=== PATIENT | male | born 1990 | race Caucasian/White ===

== ENCOUNTER 2018-03-30 13:28 | Inpatient (IN) | payer OTHER ==
[~2018-03-30 13:28] MED LIST: Glycopyrrolate 0.2 MG/ML 5 ML SYRINGE ONE; ISOVUE-370 76%-LOCM 1 ML ONE; Lidocaine 1% PF 5 ML VIAL ONE; Metoclopramide HCl 10 MG/2 ML VIAL ONE; Ondansetron PF 4 MG/2 ML Vial ONE; PHENYLEPHRINE-NS 100 MCG/ML 10 ML SYRINGE ONE; PROPOFOL 200 MG/20 ML VIAL ONE; Rocuronium Bromide 10 MG/ML (10ML VIAL) ONE; Succinylcholine Chloride 20 MG/ML 10 ml SYRINGE FS ONE
[2018-03-30] MEDS ORDERED: Adacel (T-DAP) 0.5 ML SYRINGE ONE (13:33)
[2018-03-30] MEDS ORDERED: Morphine 2 MG/ML SYRINGE ONE (13:33)
[2018-03-30] MEDS ORDERED: CEFAZOLIN 2 GM/50 ML BAG ONE (13:33)
[2018-03-30] MEDS ORDERED: HYDROmorphone 0.5 MG/0.5 ML SYRINGE ONE (13:54)
--- NOTE | 2018-03-30 14:27 | RAD ---
RIGHT FEMUR 2 VIEWS: HISTORY: Trauma, right thigh pain. FINDINGS/IMPRESSION: There is a comminuted and displaced fracture involving the shaft of the right femur. POS: [facility]
[2018-03-30 14:28] LABS: Hemoglobin 16.1 g/dL (14.0-18.0); Mean Corpuscular HGB CONC 32.9 g/dL (32.0-36.0); Mean Corpuscular Hemoglobin 31.5 pg (27.0-31.0); Mean Corpuscular Volume 95.9 fL (78.0-98.0); Mean Platelet Volume 7.4 fL (7.4-10.4); Platelet Count 383 thou/uL (130-400); RBC Distribution Width 11.1 % (11.5-14.5); Red Blood Cell (RBC) Count 5.12 mill/uL (4.70-6.10); White Blood Cell (WBC) Count 28.3 thou/uL (4.8-10.8)
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
[2018-03-30 14:45] LABS: Band 16 % (5-11); Lymphocytes 11 % (21-51); MDiff Complete? YES; Monocytes 7 % (0-10); Myelocyte 2 % (0-0); Neutrophil 64 % (42-75); PTT 26.4 SEC (22.9-36.1); Platelet Morphology Comment Appears Adequate; Prothrombin Time 13.4 SEC (12.0-14.7); RBC Morphology Normal
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
[2018-03-30 15:04] LABS: ALT (SGPT) 120 U/L (8-55); AST (SGOT) 135 U/L (5-34); Albumin 4.4 g/dL (3.5-5.0); Alcohol Less than 10 mg/dL (Less than 10); Alkaline Phosphatase 63 U/L (40-150); Anion Gap 16 mmol/L (10-20); BUN (Urea Nitrogen) 12 mg/dL (8.9-20.6); Bilirubin, Total 0.8 mg/dL (0.2-1.2); Calc. Creatinine Clearance 0 mL/min (70-130); Calcium 9.6 mg/dL (7.8-10.44); Carbon Dioxide 21 mmol/L (22-29); Chloride 102 mmol/L (98-107); Estimated GFR-MDRD 75; Globulin 2.7 g/dL (2.4-3.5); Glucose 225 mg/dL (70-105); Lipase 80 U/L (8-78); Protein, Total 7.1 g/dL (6.0-8.3); Sodium 136 mmol/L (136-145)
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
[2018-03-30] MEDS ORDERED: Famotidine/PF 20 mg/2ml Vial ONE (15:56)
[2018-03-30] MEDS ORDERED: Dextrose 5% in Water 1,000 ML IV PRN ×2 (15:59→16:06)
[2018-03-30] MEDS ORDERED: Dextrose 50% Abboject 50 ML SYRINGE SLOW IVP PRN ×2 (15:59→16:06)
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
[2018-03-30] MEDS ORDERED: Fentanyl 250 MCG/5 ML VIAL ONE (16:01)
[2018-03-30] MEDS ORDERED: Midazolam HCl 2 mg/2 ml Vial ONE (16:01)
[2018-03-30] MEDS ORDERED: Ondansetron PF 4 MG/2 ML Vial IVP PRN (16:06)
[2018-03-30] MEDS ORDERED: hydrALAZINE 20 MG/ML VIAL SLOW IVP PRN (16:06)
[2018-03-30] MEDS ORDERED: Promethazine HCl 25 MG/ML VIAL IM/IV PRN (16:12)
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
[2018-03-30] MEDS ORDERED: cefTRIAXone\\ROCEPHIN 1 GM VIAL ONE ×2 (17:28)
[2018-03-30] MEDS ORDERED: Potassium Chloride 40 MEQ in Sodium Chloride 0.9% 250 ML 250 ML IVPB SCH (17:30)
[2018-03-30 17:33] LABS: Magnesium 2.1 mg/dL (1.6-2.6)
[2018-03-30 17:41] LABS: Phosphorus 1.4 mg/dL (2.3-4.7)
[2018-03-30] MEDS: Acetaminophen 1,000 MG in Premix Bag 1 BAG IVPB SCH (18:07)
[2018-03-30] MEDS ORDERED: PHENYLEPHRINE-NS 100 MCG/ML 10 ML SYRINGE ONE (18:10)
[2018-03-30] MEDS ORDERED: Potassium Phosphate 9 MMOL in Sodium Chloride 0.9% 100 ML IVPB PRN (18:21)
[2018-03-30] MEDS ORDERED: Phenylephrine HCL 10 MG/ML VIAL ONE (19:59)
[2018-03-30] MEDS ORDERED: Sodium Bicarb 50 MEQ/50 ML Abboject 8.4% SYRINGE ONE (20:01)
[2018-03-30] MEDS ORDERED: Albumin 5% 0 ML ONE (20:01)
[2018-03-30] MEDS ORDERED: Sodium Bicarbonate 2.5 MEQ/5 ML VIAL ONE (20:01)
[2018-03-30 20:02] LABS: #Lymphocytes 0.7 thou/uL (1.20-3.40); #Monocytes 2.1 thou/uL (0.11-0.59); #Neutrophils 11.4 thou/uL (1.40-6.50); %Basophils 0.3 % (0.0-1.0); %Eosinophils 0.1 % (0.0-10.0); %Lymphocytes 4.7 % (21.0-51.0); %Monocytes 14.9 % (0.0-10.0); Hemoglobin 9.2 g/dL (14.0-18.0); Mean Corpuscular HGB CONC 33.6 g/dL (32.0-36.0); Mean Corpuscular Hemoglobin 32.2 pg (27.0-31.0); Mean Platelet Volume 7.3 fL (7.4-10.4); Platelet Count 227 thou/uL (130-400); RBC Distribution Width 10.9 % (11.5-14.5); Red Blood Cell (RBC) Count 2.86 mill/uL (4.70-6.10); White Blood Cell (WBC) Count 14.3 thou/uL (4.8-10.8)
[2018-03-30 20:07] LABS: INR-International Normal Ratio 1.6; PTT 30.2 SEC (22.9-36.1); Prothrombin Time 18.8 SEC (12.0-14.7)
[2018-03-30 20:14] LABS: D-Dimer Test 7.87 *mcg/mL (0.27-0.43)
[2018-03-30 20:23] LABS: Bilirubin Negative (Negative); Blood, Urine Large (Negative); Clarity CLEAR (Clear); Glucose, Urine (Dipstick) Negative (Negative); Leukocyte Negative (Negative); Nitrite Negative (Negative); Protein, Urine (Dipstick) Trace mg/dL (Neg-Trace); Specific Gravity, Urine 1.042 (1.002-1.036); Urobilinogen 0.2 mg/dL (0.2-1.0)
[2018-03-30 20:24] LABS: Bacteria/HPF None Seen HPF (None Seen); RBC/HPF 0-3 HPF (0-3)
[2018-03-30 20:28] LABS: Pathc Cast-AUWi Flag 4.36 (0-2.49)
[2018-03-30 20:36] LABS: Hyaline Casts/LPF 0-3 HYALINE CAST LPF (0-3 Hyaline); Other Casts/LPF 0-3 COARSE GRAN LPF (0-3 Hyaline); Squamous Epithelial None Seen HPF (0-3); Transitional Epithelial 0-3 HPF (0-3)
[2018-03-30] MEDS: Famotidine/PF 20 mg/2ml Vial SLOW IVP SCH (21:00)
--- NOTE | 2018-03-30 23:44 | RAD ---
RIGHT FEMUR INTRAOPERATIVE FLUOROSCOPY TWO VIEWS: History: Femur fracture. FINDINGS: Intraoperative fluoroscopy was provided for internal fixation as performed by Dr. Howell. Spot fluor oscopic images show long josh transfixing the right femur, in anatomic alignment. Fluoro time: 493 seconds. POS: [facility]
--- NOTE | 2018-03-30 23:48 | RAD ---
RIGHT FOREARM TWO VIEWS INTRAOPERATIVE FLUOROSCOPY: History: Forearm fracture. FINDINGS: Intraoperative fluoroscopy was provided for internal fixation as performed by Dr. Howell. Spot fluor oscopic images shows metallic plates and multiple screws transfixing the radial and ulnar shafts. Raya tomic alignment. Fluoro time: 23 seconds. POS: [facility]
[2018-03-31] MEDS: Sodium Chloride 0.9% 1,000 ML IV SCH ×3 (00:01→08:44)
[2018-03-31] MEDS ORDERED: HYDROmorphone 2 MG/ML VIAL SLOW IVP PRN (00:08)
[2018-03-31] MEDS ORDERED: Promethazine HCl 25 MG/ML VIAL SLOW IVP PRN (00:08)
[2018-03-31] MEDS ORDERED: Ondansetron HCl/PF 4 MG/2 ML Vial IVP PRN (00:08)
[2018-03-31] MEDS ORDERED: PACU-Morphine 4MG/ML VIAL SLOW IVP PRN (00:08)
[2018-03-31] MEDS ORDERED: Morphine Sulfate 2 MG/ML SYRINGE SLOW IVP PRN (00:08)
[2018-03-31] MEDS ORDERED: Promethazine HCl 25 MG/ML VIAL IM PRN (00:08)
[2018-03-31] MEDS ORDERED: Meperidine HCl/PF 25 MG/ML VIAL SLOW IVP PRN (00:08)
[2018-03-31] MEDS ORDERED: Fentanyl 100 MCG/2 ML VIAL ONE (01:02)
[2018-03-31] MEDS ORDERED: Dextrose 50% Abboject 50 ML SYRINGE SLOW IVP PRN (01:14)
[2018-03-31] MEDS ORDERED: Dextrose 5% in Water 1,000 ML IV PRN (01:14)
[2018-03-31] MEDS: Morphine 4 MG/ML VIAL SLOW IVP PRN ×9 (02:24→23:17)
[2018-03-31] MEDS: Acetaminophen 1,000 MG in Premix Bag 1 BAG IVPB SCH ×2 (02:28→05:38)
[2018-03-31] MEDS ORDERED: Ketorolac Tromethamine 30 MG/ML VIAL IVP SCH (02:45)
[2018-03-31] MEDS ORDERED: Famotidine/PF 20 mg/2ml Vial SLOW IVP SCH (02:45)
[2018-03-31 02:56] VITALS: BMI 25.2
[2018-03-31] MEDS: Ketorolac Tromethamine 30 MG/ML VIAL IVP SCH ×3 (05:38→18:33)
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
--- NOTE | 2018-03-31 07:56 | RAD ---
LEFT FEMUR TWO VIEWS INTRAOPERATIVE FLUOROSCOPY: History: Femur fracture. FINDINGS: Fluoroscopic imaging of the left femur was performed for measurement purposes relating to the right f emoral fixation for Dr. Howell. POS: [facility]
[2018-03-31 08:13] LABS: Hemoglobin 10.3 g/dL (14.0-18.0); Mean Corpuscular HGB CONC 34.2 g/dL (32.0-36.0); Mean Corpuscular Volume 93.5 fL (78.0-98.0); Mean Platelet Volume 7.1 fL (7.4-10.4); Platelet Count 181 thou/uL (130-400); RBC Distribution Width 11.6 % (11.5-14.5); Red Blood Cell (RBC) Count 3.21 mill/uL (4.70-6.10)
--- NOTE | 2018-03-31 08:21 | RAD ---
CHEST 1 VIEW: INDICATION: History of small right pneumothorax. COMPARISON: Prior CT of the chest, abdomen, and pelvis dated 03/30/2018. FINDINGS: No appreciably pneumothorax is demonstrated. The lungs are clear. No pleural effusion is evident. Heart size is normal. No acute osseous abnormality is evident. IMPRESSION: No appreciable right-sided pneumothorax is identified. POS: [facility]
--- NOTE | 2018-03-31 08:23 | RAD ---
FOUR VIEWS RIGHT FEMUR: INDICATION: Status post IM nailing of the right femur. COMPARISON: Prior fluoroscopic exam dated 03/30/2018. FINDINGS: The comminuted distal femoral shaft fracture is unchanged in position. The IM nail is unchanged in p osition. There is associated immobilizer. Soft tissue gas overlies the lateral aspect of the right thigh as well as the intraarticular compartment of the right knee. IMPRESSION: Intramedullary rodding of the comminuted right distal femoral shaft fracture. Fracture alignment is unchanged. The instrumentation projects in the expected position. POS: [facility]
[2018-03-31] MEDS: Famotidine/PF 20 mg/2ml Vial SLOW IVP SCH ×2 (08:36→20:53)
[2018-03-31 08:40] LABS: ALT (SGPT) 70 U/L (8-55); AST (SGOT) 139 U/L (5-34); Albumin 2.6 g/dL (3.5-5.0); Alkaline Phosphatase 31 U/L (40-150); Bilirubin, Direct 0.4 mg/dL (0.1-0.3); Bilirubin, Total 0.8 mg/dL (0.2-1.2); Protein, Total 4.1 g/dL (6.0-8.3)
[2018-03-31 08:43] LABS: Anion Gap 9 mmol/L (10-20); BUN (Urea Nitrogen) 9 mg/dL (8.9-20.6); Calc. Creatinine Clearance 168 mL/min (70-130); Calcium 6.9 mg/dL (7.8-10.44); Carbon Dioxide 22 mmol/L (22-29); Chloride 110 mmol/L (98-107); Estimated GFR-MDRD Greater than 90; Glucose 137 mg/dL (70-105); Magnesium 1.1 mg/dL (1.6-2.6); Phosphorus 2.7 mg/dL (2.3-4.7); Potassium 4.3 mmol/L (3.5-5.1); Sodium 137 mmol/L (136-145)
[2018-03-31] MEDS ORDERED: SODIUM PHOSPHATE IVPB SCH (09:00)
[2018-03-31] MEDS ORDERED: MAGNESIUM SULFATE IVPB SCH (09:00)
[2018-03-31] MEDS ORDERED: SODIUM CHLORIDE 0.9% IVPB SCH (09:00)
[2018-03-31 09:48] LABS: Band 44 % (5-11); Eosinophils 1 % (0-10); Lymphocytes 14 % (21-51); MDiff Complete? YES; Monocytes 12 % (0-10); Neutrophil 27 % (42-75); Platelet Morphology Comment Appears Adequate; Polychromasia SLIGHT = 2-3 cells (100X) (0-2/hpf); Reactive Lymphocytes 2 % (0-10)
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
[2018-03-31] MEDS ORDERED: traMADol HCl 50 MG TAB PO PRN (11:39)
[2018-03-31] MEDS: traMADol HCl 50 MG TAB PO PRN ×2 (12:35→18:34)
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
[2018-03-31] MEDS: Ketorolac Tromethamine 15 MG/ML VIAL IVP SCH (12:45)
[2018-03-31] MEDS: Acetaminophen 500 MG TAB PO SCH ×2 (12:45→18:31)
[2018-03-31] MEDS: cefTRIAXone\\ROCEPHIN 2 GM in Sodium Chloride 0.9% 100 ML IVPB SCH (18:32)
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
[2018-04-01] MEDS: Acetaminophen 500 MG TAB PO SCH ×4 (00:56→17:12)
[2018-04-01] MEDS: Ketorolac Tromethamine 30 MG/ML VIAL IVP SCH ×2 (00:57→06:07)
[2018-04-01] MEDS: Sodium Chloride 0.9% 1,000 ML IV SCH ×2 (01:03→09:46)
[2018-04-01] MEDS: traMADol HCl 50 MG TAB PO PRN (06:06)
[2018-04-01] MEDS ORDERED: HYDROcodone/Acetaminophen 10/325 mg Tablet PO PRN (06:51)
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
[2018-04-01 07:52] LABS: #Eosinphils 0.1 thou/uL (0.0-0.7); #Lymphocytes 0.9 thou/uL (1.20-3.40); #Monocytes 0.9 thou/uL (0.11-0.59); %Basophils 0.3 % (0.0-1.0); %Eosinophils 1.5 % (0.0-10.0); %Neutrophils 76.3 % (42.0-75.0); Hemoglobin 7.8 g/dL (14.0-18.0); Mean Corpuscular HGB CONC 32.8 g/dL (32.0-36.0); Mean Corpuscular Hemoglobin 30.9 pg (27.0-31.0); Mean Corpuscular Volume 94.1 fL (78.0-98.0); Mean Platelet Volume 7.5 fL (7.4-10.4); Platelet Count 132 thou/uL (130-400); RBC Distribution Width 11.8 % (11.5-14.5); Red Blood Cell (RBC) Count 2.51 mill/uL (4.70-6.10); White Blood Cell (WBC) Count 7.8 thou/uL (4.8-10.8)
[2018-04-01 08:39] LABS: Anion Gap 7 mmol/L (10-20); BUN (Urea Nitrogen) 8 mg/dL (8.9-20.6); Calc. Creatinine Clearance 182 mL/min (70-130); Calcium 7.2 mg/dL (7.8-10.44); Carbon Dioxide 26 mmol/L (22-29); Chloride 108 mmol/L (98-107); Estimated GFR-MDRD Greater than 90; Glucose 104 mg/dL (70-105); Phosphorus 1.2 mg/dL (2.3-4.7); Potassium 3.8 mmol/L (3.5-5.1); Sodium 137 mmol/L (136-145)
[2018-04-01] MEDS: Ascorbic Acid 500 mg Chewable Tablet PO SCH (09:22)
[2018-04-01] MEDS: Enoxaparin Sodium 40 MG/0.4 ML SYRINGE SC SCH (09:23)
[2018-04-01] MEDS: Famotidine/PF 20 mg/2ml Vial SLOW IVP SCH (09:23)
[2018-04-01] MEDS: Morphine 4 MG/ML VIAL SLOW IVP PRN ×6 (09:45→22:05)
[2018-04-01] MEDS ORDERED: Potassium Phosphate 30 MMOL in Sodium Chloride 0.9% 500 ML IVPB SCH (10:00)
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
[2018-04-01] MEDS: traMADol HCl 50 MG TAB PO SCH ×3 (11:09→22:08)
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
[2018-04-01] MEDS: Ibuprofen 800 MG TAB PO PRN ×2 (14:54→20:56)
[2018-04-01] MEDS: cefTRIAXone\\ROCEPHIN 2 GM in Sodium Chloride 0.9% 100 ML IVPB SCH (17:14)
[2018-04-01] MEDS: Famotidine 20 MG TAB PO SCH (20:55)
[2018-04-02] MEDS: Acetaminophen 500 MG TAB PO SCH ×4 (00:34→18:33)
[2018-04-02] MEDS: traMADol HCl 50 MG TAB PO SCH ×4 (04:06→21:36)
[2018-04-02 06:25] LABS: #Basophils 0.1 thou/uL (0.0-0.2); #Eosinphils 0.1 thou/uL (0.0-0.7); #Lymphocytes 1.1 thou/uL (1.20-3.40); #Monocytes 0.7 thou/uL (0.11-0.59); #Neutrophils 6.9 thou/uL (1.40-6.50); %Basophils 0.7 % (0.0-1.0); %Eosinophils 1.6 % (0.0-10.0); %Lymphocytes 12.2 % (21.0-51.0); %Monocytes 7.7 % (0.0-10.0); %Neutrophils 77.8 % (42.0-75.0); Mean Corpuscular HGB CONC 34.4 g/dL (32.0-36.0); Mean Corpuscular Hemoglobin 32.5 pg (27.0-31.0); Mean Corpuscular Volume 94.6 fL (78.0-98.0); Mean Platelet Volume 7.2 fL (7.4-10.4); Platelet Count 141 thou/uL (130-400); RBC Distribution Width 11.8 % (11.5-14.5); Red Blood Cell (RBC) Count 2.14 mill/uL (4.70-6.10); White Blood Cell (WBC) Count 8.9 thou/uL (4.8-10.8)
[2018-04-02 06:40] LABS: Anion Gap 11 mmol/L (10-20); BUN (Urea Nitrogen) 7 mg/dL (8.9-20.6); Calc. Creatinine Clearance 187 mL/min (70-130); Calcium 7.6 mg/dL (7.8-10.44); Carbon Dioxide 25 mmol/L (22-29); Chloride 107 mmol/L (98-107); Estimated GFR-MDRD Greater than 90; Glucose 100 mg/dL (70-105); Magnesium 1.9 mg/dL (1.6-2.6); Phosphorus 1.7 mg/dL (2.3-4.7); Potassium 3.5 mmol/L (3.5-5.1); Sodium 139 mmol/L (136-145)
[2018-04-02] MEDS ORDERED: Potassium Phosphate 30 MMOL in Sodium Chloride 0.9% 500 ML IVPB SCH (08:00)
[2018-04-02] MEDS ORDERED: Magnesium 2 GM/50 ML 2 GM in Premix Bag 1 BAG IVPB SCH (08:00)
[2018-04-02] MEDS: Famotidine 20 MG TAB PO SCH ×2 (08:11→21:35)
[2018-04-02] MEDS: Enoxaparin Sodium 40 MG/0.4 ML SYRINGE SC SCH (08:11)
[2018-04-02] MEDS: Senokot S 8.6-50 MG TAB PO SCH ×2 (08:11→21:36)
[2018-04-02] MEDS: Polyethylene Glycol 3350 17 GM Packet PO SCH (08:11)
[2018-04-02] MEDS: Ascorbic Acid 500 mg Chewable Tablet PO SCH (08:11)
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
[2018-04-02] MEDS: Morphine 4 MG/ML VIAL SLOW IVP PRN ×4 (10:48→21:38)
[2018-04-02] MEDS: Ibuprofen 800 MG TAB PO PRN (12:55)
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
--- NOTE | 2018-04-02 14:25 | OP ---
DATE OF PROCEDURE: 03/29/2018 DATE OF SURGERY: Surgery began on and ended on . PREOPERATIVE DIAGNOSES: 1. Right both-bone forearm fracture, radius and ulnar midshaft at least four fracture components of each site. 2. Open fracture, index finger metacarpal, at least four fracture fragments with 2.5 cm wound. 3. Metacarpal fracture of the thumb. 4. Compartment syndrome with impending edema, dorsal compartments of the hand. 5. Impending swelling, dorsal compartments of the forearm with large comminuted both-bone forearm fractures. 6. Flexor tendon lacerations, muscle belly-tendinous junction in the following areas, flexor pollicis longus, index finger flexor digitorum profundus, and long finger flexor digitorum profundus. THEATER TEACHER: Dr. Edin Howell. DESCRIPTION OF PROCEDURE: The right upper extremity procedure will be as follows. 1. At the right hand and digits. a. Debridement of material associated with open fracture, index finger metacarpal. b. Debridement of material associated with open fracture, thumb metacarpal. c. Open reduction and percutaneous fixation, index finger metacarpal. d. Open reduction and percutaneous fixation, thumb metacarpal fracture. e. C-arm supervision at the hand. 2. Forearm fractures. Compartment releases/fasciotomy, right dorsal hand at forearm level. a. Open reduction and internal fixation, radial shaft fracture. b. Open reduction and internal fixation, ulnar shaft fracture, all comminuted, kind of complex fracture techniques such as interfragmentary lag screw. c. Volar compartment release, forearm. d. Dorsal compartment release, forearm. e. C-arm supervision. DESCRIPTION OF PROCEDURE: After successful general endotracheal anesthesia, the limb was prepped and draped. The patient had the time-out done and underwent trauma management before procedure such as Weaver, laboratory, hydration, blood being procured and started and both surgeons, Dr. Wren and Dr. Howell participated in prepping and draping as well. Then, Dr. Wren began initially with the hand first, exsanguinating the limb and inflating the tourniquet, well padded high up in the arm for the possible humeral surgery and extended the web space 2 cm wound 1 cm distal and 1 cm proximal here. We could easily visualize the index finger metacarpal fracture, but only palpate the metacarpal fracture distal aspect of the thumb, so using the curette, two different types, and incision, [place] blade was able to debride these fractures through the webspace wound, dissecting the palm and dorsal, especially the index finger where we found no unnecessary comminution. I then irrigated these two fracture sites with a 5 L normal saline and Pulsavac pressure. Hematoma evacuated as well, but no other abnormalities seen. I then performed in-line traction of the thumb and placed two K-wires across the fracture sites with nearly anatomic position and this was the primary treatment of choice at this time. We then performed a K-wire pinning x1 to stabilize the index finger metacarpal fracture and then because of the impending swelling, we performed dorsal compartment release, we used the thenar compartment release through the incision and left all three incisions open. We now turned attention to the both-bone forearm fracture, but in between, with the assistance of Dr. Howell on the femur fracture, retrograde nailing, while I performed marked technical assistance. Returned to the upper extremity, re-exsanguinated the limbs and approached the both-bone forearm fracture with the hand free, using the volar approach to the midshaft radius in the interval between the radial artery, flexor carpi radialis tendon, but it was here that I saw that the flexor digitorum profundus had been cut by one of the chards of bone from the radius as well as the flexor pollicis longus musculotendinous junction. This was debrided, prepared for repair later for first. Dr. Wren had to find the mid portion of the fracture of the radius, place it in excellent position relative to two other ends of the shaft fracture. I placed the lag screw from distal to proximal into the fragment and now reduced it with the plate on the bone, which is a 7-hole plate. This allowed 6 cortices at least on side of the break. We used a standard drill, measuring tap program for this, and then the patient had the C-arm confirmed anatomic position. I then inspected the wound, did some debridement using what was now, muscle that had lost vibrant color with following techniques. 1. Tenotomy scissors and Mikael Talbert black pickler and [place]. 2. Including some muscle belly and some of the tendon of the musculotendinous junction in the flexor digitorum profundus to the index and long finger and the flexor pollicis longus tendon. Once we had done this, I did repair flexor pollicis longus using a flexor tendon program, Grant-Mil technique with 3-0 looped Supramid suture. Then, we performed a muscle on muscle repair for the flexor digitorum profundus to two digits, index and long finger. Once this was done, we knew the wound could not be closed. We approached the ulna from a midline ulnar incision centered on the fracture based on C-arm supervision. I carried through the skin and subcutaneous tissue and opened up the fascia sharply with a knife blade and had to expose the ulnar fracture. Again, we used a lag screw technique, 2.7 this time because of the size of ulnar versus radius to hold the primary butterfly fragment that was crushed out when the fracture reduced back to the proximal 1/2 of the fracture. Then keyed the distal 1/2 into this entire construct, held it with a large and in anatomic position once we placed the 3.5 8-hole plate across the fracture with at least 6 cortices on both sides and the large 3.5 screws. Now released the tourniquet. There was no nonviable muscle in the ulnar approach, but because of the swelling and impending swelling, we decided to treat this with wet-to-dry dressing and within 24-36 hours placing a VAC dressing. This was scheduled and the patient had the wounds all open, prepared to go to recovery room in a long-arm splint, well padded with moist wet-to-dry dressing change anticipated. Job ID: [id number]
[2018-04-02] MEDS: Bisacodyl 10 MG SUPP PR PRN (16:09)
[2018-04-03] MEDS: Acetaminophen 500 MG TAB PO SCH ×5 (00:48→23:04)
[2018-04-03] MEDS: Bisacodyl 10 MG SUPP PR PRN (02:41)
[2018-04-03] MEDS: Ibuprofen 800 MG TAB PO PRN ×2 (04:08→20:46)
[2018-04-03] MEDS: traMADol HCl 50 MG TAB PO SCH ×4 (04:08→21:25)
[2018-04-03 07:53] LABS: #Eosinphils 0.1 thou/uL (0.0-0.7); #Lymphocytes 0.7 thou/uL (1.20-3.40); #Monocytes 0.7 thou/uL (0.11-0.59); #Neutrophils 7.8 thou/uL (1.40-6.50); %Basophils 0.2 % (0.0-1.0); %Eosinophils 0.9 % (0.0-10.0); %Lymphocytes 7.6 % (21.0-51.0); %Monocytes 7.1 % (0.0-10.0); %Neutrophils 84.2 % (42.0-75.0); Hemoglobin 6.8 g/dL (14.0-18.0); Mean Corpuscular HGB CONC 33.1 g/dL (32.0-36.0); Mean Corpuscular Hemoglobin 31.4 pg (27.0-31.0); Mean Corpuscular Volume 94.7 fL (78.0-98.0); Mean Platelet Volume 7.1 fL (7.4-10.4); Platelet Count 230 thou/uL (130-400); RBC Distribution Width 12.1 % (11.5-14.5); Red Blood Cell (RBC) Count 2.16 mill/uL (4.70-6.10); White Blood Cell (WBC) Count 9.3 thou/uL (4.8-10.8)
[2018-04-03 08:12] LABS: Anion Gap 10 mmol/L (10-20); BUN (Urea Nitrogen) 8 mg/dL (8.9-20.6); Calc. Creatinine Clearance 207 mL/min (70-130); Calcium 8.3 mg/dL (7.8-10.44); Carbon Dioxide 27 mmol/L (22-29); Chloride 105 mmol/L (98-107); Estimated GFR-MDRD Greater than 90; Glucose 100 mg/dL (70-105); Magnesium 1.9 mg/dL (1.6-2.6); Phosphorus 3.3 mg/dL (2.3-4.7); Potassium 3.9 mmol/L (3.5-5.1); Sodium 138 mmol/L (136-145)
[2018-04-03] MEDS: Polyethylene Glycol 3350 17 GM Packet PO SCH (09:04)
[2018-04-03] MEDS: Ascorbic Acid 500 mg Chewable Tablet PO SCH ×2 (09:05→20:47)
[2018-04-03] MEDS: Senokot S 8.6-50 MG TAB PO SCH ×2 (09:06→20:56)
[2018-04-03] MEDS: Enoxaparin Sodium 40 MG/0.4 ML SYRINGE SC SCH (09:06)
[2018-04-03] MEDS: Famotidine 20 MG TAB PO SCH ×2 (09:06→20:47)
[2018-04-03] MEDS ORDERED: SODIUM CHLORIDE 0.9% IVPB SCH ×2 (12:00)
[2018-04-03] MEDS ORDERED: MAGNESIUM SULFATE IVPB SCH ×2 (12:00)
[2018-04-03] MEDS ORDERED: POTASSIUM CHLORIDE IVPB SCH ×2 (12:00)
[2018-04-03 13:15] LABS: Bilirubin Negative (Negative); Blood, Urine Negative (Negative); Clarity CLEAR (Clear); Glucose, Urine (Dipstick) Negative (Negative); Leukocyte Small (Negative); Nitrite Negative (Negative); Protein, Urine (Dipstick) Negative (Neg-Trace); Specific Gravity, Urine 1.018 (1.002-1.036); Urobilinogen 0.2 mg/dL (0.2-1.0)
[2018-04-03 13:18] LABS: Bacteria/HPF None Seen HPF (None Seen); Hyaline Casts/LPF 0-3 HYALINE CAST LPF (0-3 Hyaline); RBC/HPF 0-3 HPF (0-3); Squamous Epithelial 0-3 HPF (0-3)
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
[2018-04-03] MEDS: Morphine 4 MG/ML VIAL SLOW IVP PRN ×2 (20:42→22:58)
[2018-04-04] MEDS: Morphine 4 MG/ML VIAL SLOW IVP PRN ×2 (01:15→05:42)
[2018-04-04] MEDS: traMADol HCl 50 MG TAB PO SCH ×4 (04:32→22:04)
[2018-04-04] MEDS: Acetaminophen 500 MG TAB PO SCH ×4 (05:43→23:26)
[2018-04-04 07:05] LABS: #Eosinphils 0.2 thou/uL (0.0-0.7); #Lymphocytes 0.9 thou/uL (1.20-3.40); #Monocytes 0.8 thou/uL (0.11-0.59); #Neutrophils 5.8 thou/uL (1.40-6.50); %Basophils 0.4 % (0.0-1.0); %Lymphocytes 11.1 % (21.0-51.0); %Monocytes 10.1 % (0.0-10.0); %Neutrophils 76.3 % (42.0-75.0); Hemoglobin 7.6 g/dL (14.0-18.0); Mean Corpuscular HGB CONC 33.1 g/dL (32.0-36.0); Mean Corpuscular Hemoglobin 31.2 pg (27.0-31.0); Mean Corpuscular Volume 94.4 fL (78.0-98.0); Mean Platelet Volume 6.9 fL (7.4-10.4); Platelet Count 290 thou/uL (130-400); RBC Distribution Width 12.7 % (11.5-14.5); Red Blood Cell (RBC) Count 2.43 mill/uL (4.70-6.10); White Blood Cell (WBC) Count 7.6 thou/uL (4.8-10.8)
[2018-04-04 07:28] LABS: Anion Gap 11 mmol/L (10-20); BUN (Urea Nitrogen) 10 mg/dL (8.9-20.6); Calc. Creatinine Clearance 217 mL/min (70-130); Calcium 8.4 mg/dL (7.8-10.44); Carbon Dioxide 26 mmol/L (22-29); Chloride 105 mmol/L (98-107); Estimated GFR-MDRD Greater than 90; Glucose 92 mg/dL (70-105); Potassium 3.7 mmol/L (3.5-5.1); Sodium 138 mmol/L (136-145)
[2018-04-04] MEDS ORDERED: Potassium Chloride 10 MEQ in Premix Bag 1 BAG IVPB SCH (08:30)
[2018-04-04] MEDS: Famotidine 20 MG TAB PO SCH ×2 (09:16→22:04)
[2018-04-04] MEDS: Ibuprofen 800 MG TAB PO PRN (09:16)
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
[2018-04-04] MEDS: Ascorbic Acid 500 mg Chewable Tablet PO SCH ×2 (12:02→22:04)
[2018-04-04] MEDS: Senokot S 8.6-50 MG TAB PO SCH ×2 (12:03→22:04)
[2018-04-04] MEDS: Enoxaparin Sodium 40 MG/0.4 ML SYRINGE SC SCH (12:03)
[2018-04-04] MEDS: Polyethylene Glycol 3350 17 GM Packet PO SCH (12:03)
[2018-04-04] MEDS ORDERED: Rocuronium Bromide 10 MG/ML (10ML VIAL) ONE (14:24)
[2018-04-04] MEDS ORDERED: PROPOFOL 200 MG/20 ML VIAL ONE (14:24)
[2018-04-04] MEDS ORDERED: Lidocaine 1% PF 5 ML VIAL ONE (14:24)
[2018-04-04] MEDS ORDERED: Fentanyl 100 MCG/2 ML VIAL ONE ×8 (14:25→21:43)
[2018-04-04] MEDS ORDERED: Vancomycin HCl 1.5 GM in Sodium Chloride 0.9% 250 ML 300 ML IVPB SCH (15:15)
[2018-04-04] MEDS ORDERED: Bupivacaine PF 0.5% 30 ML VIAL ONE ×2 (15:40→20:26)
[2018-04-04] MEDS ORDERED: Thrombin 5000 UNITS/5 ML VIAL ONE ×2 (15:40→18:00)
[2018-04-04] MEDS ORDERED: Bacitracin Zinc Ointment 30 gm TUBE ONE (15:40)
[2018-04-04] MEDS ORDERED: Sodium Chloride 0.9% 30 ML ONE (15:41)
[2018-04-04] MEDS ORDERED: Sodium Chloride 0.9% 20 ML ONE (15:46)
--- NOTE | 2018-04-04 16:41 | RAD ---
CERVICAL SPINE 3 VIEWS: Date: 04/04/18 HISTORY: Preoperative evaluation. FINDINGS: Cervical vertebra maintain normal height and alignment. The disc spaces are preserved. The posterior elements are normally aligned. IMPRESSION: Unremarkable cervical spine. POS: [facility]
[2018-04-04] MEDS ORDERED: Midazolam HCl 2 mg/2 ml Vial ONE ×4 (16:44→18:09)
[2018-04-04] MEDS ORDERED: Meperidine HCl/PF 25 MG/ML VIAL SLOW IVP PRN (21:15)
[2018-04-04] MEDS ORDERED: Promethazine HCl 25 MG/ML VIAL IM PRN ×2 (21:15→21:54)
[2018-04-04] MEDS ORDERED: Promethazine HCl 25 MG/ML VIAL SLOW IVP PRN (21:15)
[2018-04-04] MEDS ORDERED: Ondansetron HCl/PF 4 MG/2 ML Vial IVP PRN (21:15)
--- NOTE | 2018-04-04 21:26 | RAD ---
LEFT ANKLE THREE VIEWS: 04/04/18 HISTORY: Left ankle injury. Minimal soft tissue swelling noted medially and laterally at the level of the ankle and hindfoot. No evidence for acute fracture or dislocation. IMPRESSION: Soft tissue swelling without acute fracture or dislocation. POS: [facility]
--- NOTE | 2018-04-04 21:28 | RAD ---
LEFT FOOT THREE VIEWS: 04/04/18 HISTORY: Left foot injury. FINDINGS: There is some soft tissue swelling of the foot. No acute fracture or dislocation. IMPRESSION: Soft tissue swelling without fracture or dislocation. POS: [facility]
[2018-04-04] MEDS ORDERED: fentaNYL Citrate/PF 2,000 MCG in Sodium Chloride 0.9% 60 ML IV PRN (21:54)
[2018-04-04] MEDS ORDERED: diphenhydrAMINE 50 MG/ML VIAL IM PRN (21:54)
[2018-04-04] MEDS ORDERED: Zolpidem Tartrate 5 MG TAB PO PRN (21:54)
[2018-04-04] MEDS ORDERED: Naloxone HCl 0.4 mg/ml Vial IV PRN (21:54)
[2018-04-04] MEDS ORDERED: diphenhydrAMINE 25 MG CAP PO PRN (21:54)
[2018-04-04] MEDS ORDERED: diphenhydrAMINE 50 MG/ML VIAL IVP PRN (21:54)
[2018-04-04] MEDS ORDERED: Ondansetron PF 4 MG/2 ML Vial IVP PRN (21:54)
[2018-04-04] MEDS ORDERED: Communication Order-Pharmacy FS SCH (22:00)
[2018-04-04] MEDS: CEFAZOLIN 1 GM in Sodium Chloride 0.9% 100 ML IVPB SCH (23:36)
[2018-04-05] MEDS ORDERED: Acetaminophen 1,000 MG in Premix Bag 1 BAG IVPB SCH (04:45)
[2018-04-05] MEDS ORDERED: Ketorolac Tromethamine 30 MG/ML VIAL IVP SCH (04:45)
[2018-04-05] MEDS: Acetaminophen 500 MG TAB PO SCH ×2 (06:19→11:45)
[2018-04-05] MEDS: Scopolamine 1.5 mg/72 hour Patch TOP SCH (06:20)
[2018-04-05] MEDS: CEFAZOLIN 1 GM in Sodium Chloride 0.9% 100 ML IVPB SCH ×3 (06:21→18:02)
[2018-04-05] MEDS: Cyclobenzaprine 10 MG TAB PO PRN (06:21)
[2018-04-05 08:07] LABS: Anion Gap 11 mmol/L (10-20); BUN (Urea Nitrogen) 10 mg/dL (8.9-20.6); Calc. Creatinine Clearance 204 mL/min (70-130); Calcium 7.9 mg/dL (7.8-10.44); Carbon Dioxide 22 mmol/L (22-29); Chloride 105 mmol/L (98-107); Estimated GFR-MDRD Greater than 90; Glucose 98 mg/dL (70-105); Magnesium 1.8 mg/dL (1.6-2.6); Phosphorus 3.5 mg/dL (2.3-4.7); Sodium 134 mmol/L (136-145)
[2018-04-05] MEDS ORDERED: Magnesium 2 GM/50 ML 2 GM in Premix Bag 1 BAG IVPB SCH (08:30)
--- NOTE | 2018-04-05 08:45 | RAD ---
RIGHT WRIST 2 VIEWS: Date: 04/04/18 HISTORY: Intraoperative films. FINDINGS: This shows pin placement stabilizing the first metacarpal fracture and second metacarpal fractures. IMPRESSION: Pin placement stabilizing first and second metacarpal fractures. POS: [facility]
[2018-04-05 09:14] LABS: Anisocytosis SLIGHT = 6-15 cells (100X) (0-5/hpf); Band 4 % (5-11); Eosinophils 1 % (0-10); Hemoglobin 7.1 g/dL (14.0-18.0); Hypochromia SLIGHT = 6-15 cells (100X) (0-5/hpf); Lymphocytes 13 % (21-51); MDiff Complete? YES; Mean Corpuscular HGB CONC 33.2 g/dL (32.0-36.0); Mean Corpuscular Hemoglobin 31.2 pg (27.0-31.0); Mean Corpuscular Volume 94.1 fL (78.0-98.0); Mean Platelet Volume 7.1 fL (7.4-10.4); Metamyelocyte 2 % (0-0); Monocytes 11 % (0-10); Neutrophil 69 % (42-75); Platelet Count 367 thou/uL (130-400); Polychromasia SLIGHT = 2-3 cells (100X) (0-2/hpf); RBC Distribution Width 12.8 % (11.5-14.5); Red Blood Cell (RBC) Count 2.28 mill/uL (4.70-6.10); White Blood Cell (WBC) Count 9.6 thou/uL (4.8-10.8)
[2018-04-05] MEDS: Gabapentin 100 MG CAP PO SCH ×3 (09:56→21:01)
[2018-04-05] MEDS: Ascorbic Acid 500 mg Chewable Tablet PO SCH ×2 (09:56→21:00)
[2018-04-05] MEDS: Enoxaparin Sodium 40 MG/0.4 ML SYRINGE SC SCH (09:56)
[2018-04-05] MEDS: Famotidine 20 MG TAB PO SCH ×2 (09:56→21:01)
[2018-04-05] MEDS: Ibuprofen 800 MG TAB PO PRN ×2 (09:57→18:02)
[2018-04-05] MEDS: Senokot S 8.6-50 MG TAB PO SCH ×2 (09:57→21:01)
[2018-04-05] MEDS: Polyethylene Glycol 3350 17 GM Packet PO SCH (09:57)
[2018-04-05] MEDS ORDERED: HYDROcodone/Acetaminophen 5/325 mg Tablet PO PRN (11:14)
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
[2018-04-05] MEDS: traMADol HCl 50 MG TAB PO SCH ×3 (12:38→23:15)
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
[2018-04-05] MEDS: Acetaminophen 325 MG TAB PO SCH ×2 (16:04→21:01)
[2018-04-05] MEDS: HYDROcodone/Acetaminophen 5/325 mg Tablet PO PRN (16:04)
[2018-04-06] MEDS: Acetaminophen 325 MG TAB PO SCH ×4 (03:22→21:23)
[2018-04-06] MEDS: traMADol HCl 50 MG TAB PO SCH ×4 (05:54→23:54)
[2018-04-06] MEDS: Ibuprofen 800 MG TAB PO PRN ×2 (05:56→18:15)
[2018-04-06 07:23] LABS: Anion Gap 13 mmol/L (10-20); BUN (Urea Nitrogen) 10 mg/dL (8.9-20.6); Calc. Creatinine Clearance 221 mL/min (70-130); Calcium 8.4 mg/dL (7.8-10.44); Carbon Dioxide 25 mmol/L (22-29); Chloride 101 mmol/L (98-107); Estimated GFR-MDRD Greater than 90; Glucose 103 mg/dL (70-105); Magnesium 1.6 mg/dL (1.6-2.6); Phosphorus 2.7 mg/dL (2.3-4.7); Potassium 3.9 mmol/L (3.5-5.1); Sodium 135 mmol/L (136-145)
[2018-04-06 08:11] LABS: Band 7 % (5-11); Eosinophils 1 % (0-10); Hemoglobin 7.9 g/dL (14.0-18.0); Lymphocytes 14 % (21-51); MDiff Complete? YES; Mean Corpuscular HGB CONC 33.6 g/dL (32.0-36.0); Mean Corpuscular Hemoglobin 31.9 pg (27.0-31.0); Mean Platelet Volume 6.7 fL (7.4-10.4); Metamyelocyte 4 % (0-0); Monocytes 10 % (0-10); Neutrophil 64 % (42-75); Platelet Count 421 thou/uL (130-400); RBC Distribution Width 13.2 % (11.5-14.5); Red Blood Cell (RBC) Count 2.47 mill/uL (4.70-6.10); White Blood Cell (WBC) Count 10.6 thou/uL (4.8-10.8)
[2018-04-06] MEDS ORDERED: Magnesium Sulfate 3 GM in Sodium Chloride 0.9% 100 ML IVPB SCH (09:00)
[2018-04-06] MEDS ORDERED: Potassium Phosphate 30 MMOL, Magnesium Sulfate 3 GM in Sodium Chloride 0.9% 500 ML IVPB SCH (09:00)
[2018-04-06] MEDS ORDERED: Potassium Phosphate 30 MMOL in Sodium Chloride 0.9% 500 ML IVPB SCH (09:00)
[2018-04-06] MEDS: Ascorbic Acid 500 mg Chewable Tablet PO SCH ×2 (09:01→20:30)
[2018-04-06] MEDS: Senokot S 8.6-50 MG TAB PO SCH ×2 (09:02→20:30)
[2018-04-06] MEDS: Enoxaparin Sodium 40 MG/0.4 ML SYRINGE SC SCH (09:03)
[2018-04-06] MEDS: Polyethylene Glycol 3350 17 GM Packet PO SCH (09:03)
[2018-04-06] MEDS: Gabapentin 100 MG CAP PO SCH ×3 (09:03→20:30)
[2018-04-06] MEDS: Famotidine 20 MG TAB PO SCH ×2 (09:03→20:30)
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
[2018-04-06 10:47] LABS: Bilirubin Negative (Negative); Blood, Urine Moderate (Negative); Clarity CLEAR (Clear); Glucose, Urine (Dipstick) Negative (Negative); Leukocyte Small (Negative); Nitrite Negative (Negative); Protein, Urine (Dipstick) Trace mg/dL (Neg-Trace); Specific Gravity, Urine 1.023 (1.002-1.036)
[2018-04-06 10:50] LABS: Bacteria/HPF None Seen HPF (None Seen); Hyaline Casts/LPF 0-3 HYALINE CAST LPF (0-3 Hyaline); Pathc Cast-AUWi Flag 0.14 (0-2.49); RBC/HPF 21-50 HPF (0-3); Squamous Epithelial 0-3 HPF (0-3)
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
[2018-04-06] MEDS: HYDROcodone/Acetaminophen 5/325 mg Tablet PO PRN ×2 (14:23→20:30)
[2018-04-06] MEDS: Cyclobenzaprine 10 MG TAB PO PRN ×2 (16:04→23:54)
--- NOTE | 2018-04-07 04:28 | OP ---
DATE OF PROCEDURE: 04/04/2018 PREOPERATIVE DIAGNOSES: 1. Multiple open wounds for compartment releases and fracture fixation, palm and dorsal forearm. 2. Multiple compartment release wounds, dorsal hand. 3. Open wound, webspace, first, right upper extremity. 4. Index finger and thumb metacarpal fractures, previously temporarily K-wire fixated, very comminuted. POSTOPERATIVE DIAGNOSES: 1. Multiple open wounds for compartment releases and fracture fixation, palm and dorsal forearm. 2. Multiple compartment release wounds, dorsal hand. 3. Open wound, webspace, first, right upper extremity. 4. Index finger and thumb metacarpal fractures, previously temporarily K-wire fixated, very comminuted. 5. His incisions intact at the knee. 6. He had some swelling in his left lower extremity. We performed intraoperative x-rays. It did not show any evidence of tibia, fibula, ankle, calcaneus, talus, tarsal bone, metatarsal, or phalangeal fracture, subluxation, dislocation, or incongruity. PROCEDURES PERFORMED: 1. Debridement of wounds, forearm, depth down to but not including bone, [id number]. 2. Closure of wound, forearm, 25 cm total. 3. Split-thickness skin graft, right thigh to right forearm for a 5.5 x 8 cm graft, meshed 1:1.5. 4. Debridement of wound, hand at compartment release sites. 5. Closure of wound, hand, total of 15 cm. 6. C-arm supervision. 7. Closed reduction and pinning, thumb metacarpal. 8. Closed reduction and pinning, index finger metacarpal. 9. Dressing change, right thigh and knee under general anesthesia. 10. Examination under general anesthesia, right knee. 11. Application of long-arm splint, right upper extremity. 12. Superficial radial nerve neuroplasty. 13. Median nerve neuroplasty. COMPLICATIONS: None. TOTAL TOURNIQUET TIME: Approximately 35 minutes. FINDINGS: Flexor digitorum profundus repair is intact. On exploration, there is only minimal superficial muscle necrosis. The metacarpal fractures and the index finger fracture were stable with good apposition of the comminuted fragments with the multiple pinning. The compartments were soft even after closure and grafting, and he had intact dopplerable ulnar and radial pulse, palpable radial pulse at the end of the procedure before splint application. Next, there was some evidence of posterolateral corner plus PCL instability of the right knee on exam compared to the opposite side especially the that his femur fracture is stable. Last but not least, the patient has no ankle or foot abnormality on the left. Radiographs, as described above. DESCRIPTION OF PROCEDURE: After successful general endotracheal anesthesia, the limb was prepped and draped. We first prepped and draped the entire right lower extremity and upper extremity with sterile tourniquet applied on the right upper extremity well-padded over proximal aspect of his fracture incision for the humerus surgery. We noticed that his wounds were completely healed. There was no evidence of problems in the popliteal fossa, and he had excellent pulses at the right lower extremity. We then, before prep, did examine under anesthesia, which showed a sag of about 5 to 6 mm with the knee and hip at 90 degrees, no evidence of anterior drawer or Kiki's. No valgus instability, but there was varus instability along with posterolateral recurvatum draw and rotatory increased compared to the opposite side. We then carefully prepped and draped the right lower extremity, and then we performed radiographs of the left lower extremity because of complaint of swelling, and these radiographs to include 3-view ankle and 3-view foot with oblique of the foot showed no tarsal, metatarsal, phalangeal, talus, calcaneal, or ankle abnormality. This included stable and symmetrical joint, midfoot, and the mortise. After prep and drape, we then inflated the tourniquet after exsanguinating the limb, immediately began with the palmar wound, which was the biggest, saw some denuded muscle on the edge of the flexor pollicis longus as well as some on the edge of the brachioradialis, which was debrided down to but not including the bone. We then performed neuroplasty of the superficial radial nerve on the brachioradialis, it was intact. I performed that of the median nerve as far back as the flexor pollicis longus, and we saw a contusion of the nerve with erythematous and red segment, but it was not cut, and there was no constriction once we finished the neuroplasty. We then irrigated, then inspected the ulnar wound, there was no muscle loss or skin necrosis here, and then we irrigated these wounds completely with 5 L normal saline and Pulsavac pressure with antibiotics inside. We turned our attention to the hand. We did a similar-type debridement, irrigated with a total of about 500 mL in each of the 4 wounds and prepared them for closure. We had finished the neuroplasty as well. We then released the tourniquet and obtained hemostasis. We were able to close the ulnar wound to include partial fascia closed with a running 0 Vicryl, subcutaneous closure interrupted with a 4-0 Monocryl, and a 4-0 nylon for the skin in interrupted mattress pattern. No undue tension was seen on the compartments. The compartments of the humerus, hand, and forearm were made supple throughout the entire procedure even after closure. We then closed the distal and proximal 1.5 cm and 2 cm of the radial volar wound, but it would be too tight to complete the remaining closure, so we measured and found it to be approximately 5 x 8 cm, so we harvested a 5.5 x 8 cm long split-thickness skin graft from the ipsilateral thigh, because the patient was on Lovenox, we had to place 2 thrombin-soaked Gelfoams on the donor site to stop the bleeding, but we were able to and covered it appropriately. Then, we meshed the graft 1:1.5, applied it over the palmar wound on the forearm with kell, bolstered it with bacitracin, Adaptic, mineral oil soaked ABD, and kell again. Attention was turned to the fracture site before closing these wounds with interrupted 4-0 nylon, and we were able to slightly manipulate the index finger fracture, removed the previous wire, and passed two wires and held the reduction nearly anatomic with excellent apposition. There was one dorsal fragment that was somewhat protruding, so we placed a dorsally oblique to palmar oblique K-wire and bent it, so it prevented migration and held the fragment nearly anatomically. We then exchanged the wires from the thumb as this might have been an open fracture and restored a nearly anatomic position of the thumb using three K-wires total. Both of the primary fixations were measured long huntley, which gave some stability on the fluoro. We then closed the webspace wound and the hand wounds with 4-0 nylon completely, we placed a bulky dressing on the hand all the way up to the elbow including the previous humerus surgery site along with a long-arm splint, which was applied. We finished the dressing change of the right knee under general anesthesia before placing him back in knee immobilizer. The patient left the operating room without evidence of anesthetic or operative complication. Job ID: [id number]
[2018-04-07] MEDS: traMADol HCl 50 MG TAB PO SCH ×4 (05:07→23:04)
[2018-04-07] MEDS: Acetaminophen 325 MG TAB PO SCH ×4 (05:07→23:04)
[2018-04-07 06:54] LABS: #Eosinphils 0.2 thou/uL (0.0-0.7); #Lymphocytes 1.3 thou/uL (1.20-3.40); #Monocytes 1.2 thou/uL (0.11-0.59); #Neutrophils 7.6 thou/uL (1.40-6.50); %Basophils 0.3 % (0.0-1.0); %Eosinophils 2.1 % (0.0-10.0); %Lymphocytes 12.5 % (21.0-51.0); %Monocytes 11.5 % (0.0-10.0); %Neutrophils 73.6 % (42.0-75.0); Hemoglobin 7.8 g/dL (14.0-18.0); Mean Corpuscular HGB CONC 33.9 g/dL (32.0-36.0); Mean Corpuscular Hemoglobin 32.2 pg (27.0-31.0); Mean Corpuscular Volume 94.9 fL (78.0-98.0); Mean Platelet Volume 6.5 fL (7.4-10.4); Platelet Count 522 thou/uL (130-400); RBC Distribution Width 13.7 % (11.5-14.5); Red Blood Cell (RBC) Count 2.42 mill/uL (4.70-6.10); White Blood Cell (WBC) Count 10.3 thou/uL (4.8-10.8)
[2018-04-07 07:17] LABS: Anion Gap 14 mmol/L (10-20); BUN (Urea Nitrogen) 9 mg/dL (8.9-20.6); Calc. Creatinine Clearance 228 mL/min (70-130); Calcium 8.4 mg/dL (7.8-10.44); Carbon Dioxide 24 mmol/L (22-29); Chloride 99 mmol/L (98-107); Estimated GFR-MDRD Greater than 90; Glucose 97 mg/dL (70-105); Magnesium 1.7 mg/dL (1.6-2.6); Phosphorus 4.4 mg/dL (2.3-4.7); Potassium 4.6 mmol/L (3.5-5.1); Sodium 132 mmol/L (136-145)
[2018-04-07] MEDS: Senokot S 8.6-50 MG TAB PO SCH ×2 (07:54→20:32)
[2018-04-07] MEDS: Gabapentin 100 MG CAP PO SCH ×3 (07:55→20:32)
[2018-04-07] MEDS: Famotidine 20 MG TAB PO SCH ×2 (07:56→20:33)
[2018-04-07] MEDS: Ascorbic Acid 500 mg Chewable Tablet PO SCH ×2 (07:57→20:32)
[2018-04-07] MEDS: Polyethylene Glycol 3350 17 GM Packet PO SCH (07:58)
[2018-04-07] MEDS: Enoxaparin Sodium 40 MG/0.4 ML SYRINGE SC SCH (08:00)
[2018-04-07] MEDS: diphenhydrAMINE 25 MG CAP PO PRN ×2 (11:09→23:07)
[2018-04-07] MEDS: Ibuprofen 800 MG TAB PO PRN (13:09)
[2018-04-07] MEDS: HYDROcodone/Acetaminophen 5/325 mg Tablet PO PRN ×2 (13:10→20:33)
[2018-04-07] MEDS ORDERED: HYDROcodone/Acetaminophen 5/325 mg Tablet PO SCH (14:30)
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
[2018-04-07] MEDS: Cyclobenzaprine 10 MG TAB PO PRN (20:33)
[2018-04-08 01:44] LABS: Chlamydia by PCR Not Detected (NotDetected); GC by PCR Not Detected (NotDetected)
[2018-04-08] MEDS: Acetaminophen 325 MG TAB PO SCH ×4 (05:13→22:31)
[2018-04-08] MEDS: traMADol HCl 50 MG TAB PO SCH ×4 (05:14→23:24)
[2018-04-08] MEDS: Scopolamine 1.5 mg/72 hour Patch TOP SCH (05:16)
[2018-04-08 07:38] LABS: #Eosinphils 0.2 thou/uL (0.0-0.7); #Lymphocytes 1.1 thou/uL (1.20-3.40); #Neutrophils 9.8 thou/uL (1.40-6.50); %Basophils 0.1 % (0.0-1.0); %Eosinophils 1.7 % (0.0-10.0); %Lymphocytes 9.3 % (21.0-51.0); %Monocytes 8.3 % (0.0-10.0); %Neutrophils 80.7 % (42.0-75.0); Hemoglobin 8.1 g/dL (14.0-18.0); Mean Corpuscular HGB CONC 33.1 g/dL (32.0-36.0); Mean Corpuscular Hemoglobin 31.4 pg (27.0-31.0); Mean Corpuscular Volume 94.8 fL (78.0-98.0); Mean Platelet Volume 6.5 fL (7.4-10.4); Platelet Count 685 thou/uL (130-400); RBC Distribution Width 13.8 % (11.5-14.5); Red Blood Cell (RBC) Count 2.58 mill/uL (4.70-6.10); White Blood Cell (WBC) Count 12.1 thou/uL (4.8-10.8)
[2018-04-08 07:56] LABS: Anion Gap 11 mmol/L (10-20); BUN (Urea Nitrogen) 11 mg/dL (8.9-20.6); Calc. Creatinine Clearance 207 mL/min (70-130); Calcium 8.8 mg/dL (7.8-10.44); Carbon Dioxide 28 mmol/L (22-29); Chloride 97 mmol/L (98-107); Estimated GFR-MDRD Greater than 90; Glucose 102 mg/dL (70-105); Magnesium 1.5 mg/dL (1.6-2.6); Phosphorus 4.3 mg/dL (2.3-4.7); Sodium 132 mmol/L (136-145)
[2018-04-08] MEDS ORDERED: Magnesium 2 GM/50 ML 1 GM in Premix Bag 1 BAG IVPB SCH (08:15)
[2018-04-08] MEDS ORDERED: Magnesium Citrate 300 ML BOT PO SCH (08:30)
[2018-04-08] MEDS ORDERED: Hydrocortisone 1% Cream 30 GM TUBE TOP SCH (09:00)
[2018-04-08] MEDS: Senokot S 8.6-50 MG TAB PO SCH ×2 (09:32→19:47)
[2018-04-08] MEDS: Famotidine 20 MG TAB PO SCH ×2 (09:33→19:48)
[2018-04-08] MEDS: Ascorbic Acid 500 mg Chewable Tablet PO SCH ×2 (09:33→19:48)
[2018-04-08] MEDS: Enoxaparin Sodium 40 MG/0.4 ML SYRINGE SC SCH (09:33)
[2018-04-08] MEDS: Polyethylene Glycol 3350 17 GM Packet PO SCH (09:34)
[2018-04-08] MEDS: Gabapentin 100 MG CAP PO SCH ×3 (11:15→19:48)
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
[2018-04-08] MEDS: HYDROcodone/Acetaminophen 5/325 mg Tablet PO PRN (15:10)
[2018-04-08] MEDS ORDERED: Midazolam HCl 2 mg/2 ml Vial ONE (17:31)
[2018-04-08] MEDS ORDERED: KETAMINE 100 MG/ML (5ML VIAL) ONE (17:33)
[2018-04-08 19:38] LABS: #Basophils 0.1 thou/uL (0.0-0.2); #Eosinphils 0.2 thou/uL (0.0-0.7); #Lymphocytes 1.6 thou/uL (1.20-3.40); #Monocytes 1.4 thou/uL (0.11-0.59); %Basophils 0.3 % (0.0-1.0); %Eosinophils 1.1 % (0.0-10.0); %Lymphocytes 9.2 % (21.0-51.0); %Monocytes 7.8 % (0.0-10.0); %Neutrophils 81.6 % (42.0-75.0); Mean Corpuscular HGB CONC 32.5 g/dL (32.0-36.0); Mean Corpuscular Hemoglobin 31.5 pg (27.0-31.0); Mean Platelet Volume 6.7 fL (7.4-10.4); Platelet Count 743 thou/uL (130-400); RBC Distribution Width 14.4 % (11.5-14.5); Red Blood Cell (RBC) Count 2.52 mill/uL (4.70-6.10); White Blood Cell (WBC) Count 17.2 thou/uL (4.8-10.8)
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
[2018-04-08 21:16] LABS: Bilirubin Negative (Negative); Blood, Urine Negative (Negative); Clarity TURBID (Clear); Glucose, Urine (Dipstick) Negative (Negative); Leukocyte Negative (Negative); Nitrite Negative (Negative); Protein, Urine (Dipstick) Negative (Neg-Trace); Specific Gravity, Urine 1.016 (1.002-1.036); pH, Urine 7.5 (5.0-9.0)
[2018-04-08 21:18] LABS: Bacteria/HPF None Seen HPF (None Seen); Hyaline Casts/LPF 0-3 HYALINE CAST LPF (0-3 Hyaline); RBC/HPF 0-3 HPF (0-3); Squamous Epithelial None Seen HPF (0-3); WBC/HPF None Seen HPF (0-3)
[2018-04-09] MEDS: Acetaminophen 325 MG TAB PO SCH ×4 (04:17→15:17)
[2018-04-09] MEDS: traMADol HCl 50 MG TAB PO SCH ×2 (05:00→12:08)
[2018-04-09] MEDS: Cyclobenzaprine 10 MG TAB PO PRN (05:01)
[2018-04-09 05:36] LABS: #Eosinphils 0.2 thou/uL (0.0-0.7); #Lymphocytes 1.6 thou/uL (1.20-3.40); #Monocytes 1.2 thou/uL (0.11-0.59); #Neutrophils 12.8 thou/uL (1.40-6.50); %Basophils 0.2 % (0.0-1.0); %Eosinophils 1.2 % (0.0-10.0); %Lymphocytes 10.2 % (21.0-51.0); %Monocytes 7.6 % (0.0-10.0); %Neutrophils 80.8 % (42.0-75.0); Anisocytosis SLIGHT = 6-15 cells (100X) (0-5/hpf); Hemoglobin 8.3 g/dL (14.0-18.0); Hypochromia SLIGHT = 6-15 cells (100X) (0-5/hpf); MDiff Complete? YES; Mean Corpuscular HGB CONC 33.5 g/dL (32.0-36.0); Mean Corpuscular Hemoglobin 31.9 pg (27.0-31.0); Mean Corpuscular Volume 95.4 fL (78.0-98.0); Mean Platelet Volume 6.2 fL (7.4-10.4); Platelet Count 748 thou/uL (130-400); Platelet Morphology Comment Appears Increased; Polychromasia MODERATE = 3-4 cells (100X) (0-2/hpf); RBC Distribution Width 14.3 % (11.5-14.5); Red Blood Cell (RBC) Count 2.61 mill/uL (4.70-6.10); White Blood Cell (WBC) Count 15.8 thou/uL (4.8-10.8)
[2018-04-09 06:19] LABS: Anion Gap 13 mmol/L (10-20); BUN (Urea Nitrogen) 10 mg/dL (8.9-20.6); Calc. Creatinine Clearance 217 mL/min (70-130); Calcium 9.1 mg/dL (7.8-10.44); Carbon Dioxide 25 mmol/L (22-29); Chloride 98 mmol/L (98-107); Estimated GFR-MDRD Greater than 90; Glucose 105 mg/dL (70-105); Magnesium 1.7 mg/dL (1.6-2.6); Phosphorus 3.9 mg/dL (2.3-4.7); Potassium 4.3 mmol/L (3.5-5.1); Sodium 132 mmol/L (136-145)
[2018-04-09] MEDS ORDERED: Magnesium 2 GM/50 ML 2 GM in Premix Bag 1 BAG IVPB SCH (07:15)
[2018-04-09] MEDS ORDERED: Polyethylene Glycol 3350 17 GM Packet PO SCH (09:00)
[2018-04-09] MEDS ORDERED: Milk Of Magnesia 30 ML UDCUP PO PRN (09:00)
[2018-04-09] MEDS: Ascorbic Acid 500 mg Chewable Tablet PO SCH (10:19)
[2018-04-09] MEDS: Senokot S 8.6-50 MG TAB PO SCH (10:19)
[2018-04-09] MEDS: Polyethylene Glycol 3350 17 GM Packet PO SCH (10:20)
[2018-04-09] MEDS: Famotidine 20 MG TAB PO SCH (10:20)
[2018-04-09] MEDS: Gabapentin 100 MG CAP PO SCH ×2 (10:20→15:17)
[2018-04-09] MEDS: Enoxaparin Sodium 40 MG/0.4 ML SYRINGE SC SCH (10:23)
[2018-04-09 16:08] VITALS: BP 128/86; TEMP 98
[2018-04-09] MEDS ORDERED: Magnesium Oxide 400 MG TAB PO SCH (21:00)
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
[2018-04-10] MEDS ORDERED: Ferrous Sulfate 325 MG TAB PO SCH (08:00)
== END 2018-04-09 16:10 | DRG 956 ==
LOC: ERS 13:28 → SDC/OP 19:59 → CCU 21:41 → SURG B 03-31 12:13
PROVIDERS: ADMIT Orthopaedic Surgery; ATTEND Orthopaedic Surgery
PROC: 0QSB06Z Reposition Right Lower Femur with Intramedullary Internal Fixation Device, Open Approach (ICD-10-PCS; principal; 2018-03-30)
PROC: 0PSF04Z Reposition Right Humeral Shaft with Internal Fixation Device, Open Approach (ICD-10-PCS; 2018-03-30)
PROC: 0KN70ZZ Release Right Upper Arm Muscle, Open Approach (ICD-10-PCS; 2018-03-30)
PROC: 0KN70ZZ Release Right Upper Arm Muscle, Open Approach (ICD-10-PCS; 2018-03-30)
PROC: 0QBG0ZZ Excision of Right Tibia, Open Approach (ICD-10-PCS; 2018-03-30)
PROC: 0PSP34Z Reposition Right Metacarpal with Internal Fixation Device, Percutaneous Approach (ICD-10-PCS; 2018-03-30)
PROC: 0PSP34Z Reposition Right Metacarpal with Internal Fixation Device, Percutaneous Approach (ICD-10-PCS; 2018-03-30)
PROC: 0PSH04Z Reposition Right Radius with Internal Fixation Device, Open Approach (ICD-10-PCS; 2018-03-30)
PROC: 0PSK04Z Reposition Right Ulna with Internal Fixation Device, Open Approach (ICD-10-PCS; 2018-03-30)
PROC: 30233N1 Transfusion of Nonautologous Red Blood Cells into Peripheral Vein, Percutaneous Approach (ICD-10-PCS; 2018-04-03)
PROC: 0HRBX74 Replacement of Right Upper Arm Skin with Autologous Tissue Substitute, Partial Thickness, External Approach (ICD-10-PCS; 2018-04-04)
PROC: 0PSP34Z Reposition Right Metacarpal with Internal Fixation Device, Percutaneous Approach (ICD-10-PCS; 2018-04-04)
PROC: 0PSP34Z Reposition Right Metacarpal with Internal Fixation Device, Percutaneous Approach (ICD-10-PCS; 2018-04-04)
PROC: 0KB90ZZ Excision of Right Lower Arm and Wrist Muscle, Open Approach (ICD-10-PCS; 2018-04-04)
PROC: 0HBHXZZ Excision of Right Upper Leg Skin, External Approach (ICD-10-PCS; 2018-04-04)
DX: S72.451B Displaced supracondylar fracture without intracondylar extension of lower end of right femur, initial encounter for open fracture type I or II (principal); S27.0XXA Traumatic pneumothorax, initial encounter; S82.201B Unspecified fracture of shaft of right tibia, initial encounter for open fracture type I or II; S52.351A Displaced comminuted fracture of shaft of radius, right arm, initial encounter for closed fracture; S52.251A Displaced comminuted fracture of shaft of ulna, right arm, initial encounter for closed fracture; S42.351A Displaced comminuted fracture of shaft of humerus, right arm, initial encounter for closed fracture; S62.300B Unspecified fracture of second metacarpal bone, right hand, initial encounter for open fracture; S62.201B Unspecified fracture of first metacarpal bone, right hand, initial encounter for open fracture; D62 Acute posthemorrhagic anemia; T79.A11A Traumatic compartment syndrome of right upper extremity, initial encounter; S66.120A Laceration of flexor muscle, fascia and tendon of right index finger at wrist and hand level, initial encounter; S66.122A Laceration of flexor muscle, fascia and tendon of right middle finger at wrist and hand level, initial encounter; G89.11 Acute pain due to trauma; K59.00 Constipation, unspecified; R33.9 Retention of urine, unspecified; L50.9 Urticaria, unspecified; N31.9 Neuromuscular dysfunction of bladder, unspecified; E87.6 Hypokalemia; E83.42 Hypomagnesemia; E83.39 Other disorders of phosphorus metabolism; V29.49XA Motorcycle driver injured in collision with other motor vehicles in traffic accident, initial encounter
CPT/HCPCS: 27502; 36415; 36430; 70450; 71045; 71260; 72040; 72050; 72125; 74177; 76000; 80048; 80053; 80076; 80307; 81001; 81003; 81015; 83690; 83735; 83874; 84100; 85025; 85379; 85384; 85610; 85730; 86850; 86900; 86901; 87086; 87491; 87591; 90471; 90715; 96365; 96375; C1713; C1769; G0390; J0131; J0360; J0690; J0696; J1170; J1650; J1885; J2001; J2250; J2270; J2370; J2405; J2704; J2765; J3010; J3370; J3475; J3480; J3490; J7050; P9016; P9045; Q0163; Q9966; S0020; S0028

== ENCOUNTER 2018-06-10 07:02 | Day surgery (SDC) | payer OTHER ==
[2018-06-09 14:06] VITALS: BMI 25.0
[2018-06-10 08:18] LABS: #Eosinphils 0.1 thou/uL (0.0-0.7); #Lymphocytes 1.7 thou/uL (1.20-3.40); #Monocytes 0.6 thou/uL (0.11-0.59); #Neutrophils 5.8 thou/uL (1.40-6.50); %Basophils 0.5 % (0.0-1.0); %Eosinophils 1.2 % (0.0-10.0); %Lymphocytes 20.4 % (21.0-51.0); %Monocytes 7.4 % (0.0-10.0); %Neutrophils 70.6 % (42.0-75.0); Hemoglobin 14.9 g/dL (14.0-18.0); Mean Corpuscular HGB CONC 32.4 g/dL (32.0-36.0); Mean Corpuscular Hemoglobin 28.8 pg (27.0-31.0); Mean Corpuscular Volume 88.9 fL (78.0-98.0); Platelet Count 378 thou/uL (130-400); RBC Distribution Width 12.3 % (11.5-14.5); Red Blood Cell (RBC) Count 5.17 mill/uL (4.70-6.10); White Blood Cell (WBC) Count 8.2 thou/uL (4.8-10.8)
[2018-06-10] MEDS ORDERED: Fentanyl 100 MCG/2 ML VIAL ONE ×2 (08:19)
[2018-06-10] MEDS ORDERED: Midazolam HCl 2 mg/2 ml Vial ONE (08:19)
[2018-06-10] MEDS ORDERED: Lidocaine 1% (PF) 30 ML VIAL ONE (08:21)
[2018-06-10] MEDS ORDERED: Bupivacaine PF 0.5% 30 ML VIAL ONE (08:21)
[2018-06-10] MEDS ORDERED: Thrombin 5000 UNITS/5 ML VIAL ONE (08:22)
[2018-06-10] MEDS ORDERED: Bacitracin Zinc Ointment 30 gm TUBE ONE (08:22)
[2018-06-10] MEDS ORDERED: Ketorolac Tromethamine 30 MG/ML VIAL ONE ×2 (09:43→12:57)
--- NOTE | 2018-06-10 12:36 | RAD ---
RIGHT HAND THREE VIEWS: Indication: Foreign body removal. FINDINGS: There has been interval removal of percutaneous pins transfixing the metacarpal fractures of the inde x finger. Fracture alignment is near anatomic. There is progressive healing when compared to a prior dated 03-30-18. IMPRESSION: Interval removal of Kirshner wires transfixing index and thumb metacarpal fractures. POS: [facility]
[2018-06-10] MEDS ORDERED: Dexamethasone 20 MG/5 ML VIAL ONE (12:57)
[2018-06-10] MEDS ORDERED: Ondansetron PF 4 MG/2 ML Vial ONE (12:57)
[2018-06-10] MEDS ORDERED: PROPOFOL 200 MG/20 ML VIAL ONE (12:57)
[2018-06-10] MEDS ORDERED: Lidocaine 1% PF 5 ML VIAL ONE (12:57)
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
== END 2018-06-10 11:10 | disposition home or self-care (01) ==
LOC: SDC 07:02
PROVIDERS: ATTEND Orthopaedic Surgery Hand Surgery
PROC: 0PPP04Z Removal of Internal Fixation Device from Right Metacarpal, Open Approach (ICD-10-PCS; principal; 2018-06-10)
DX: Z47.2 Encounter for removal of internal fixation device (principal); S62.201D Unspecified fracture of first metacarpal bone, right hand, subsequent encounter for fracture with routine healing; S62.300D Unspecified fracture of second metacarpal bone, right hand, subsequent encounter for fracture with routine healing; F32.9 Major depressive disorder, single episode, unspecified; F41.9 Anxiety disorder, unspecified; J45.909 Unspecified asthma, uncomplicated; Z96.652 Presence of left artificial knee joint; Z98.890 Other specified postprocedural states; Z87.891 Personal history of nicotine dependence
CPT/HCPCS: 76000; 85025; J1885; J2001; J2250; J3010; J3490; S0020

== ENCOUNTER 2018-11-28 09:33 | Outpatient (CLI) | payer OTHER ==
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
--- NOTE | 2018-11-28 14:56 | MRI ---
MRI OF RIGHT SHOULDER: DATE: 11/28/2018. PROVIDED CLINICAL HISTORY: Right shoulder pain. FINDINGS: The components of the rotator cuff appear intact. The longhead biceps tendon appears intact and norm ally located. The glenoid labrum and glenohumeral articular cartilage are suboptimally evaluated in the absence of joint distention. There is signal alteration in the region of the superior labrum penelope t may reflect SLAP tear. The amount of fluid within the glenohumeral joint appears physiologic. There is a physiologic amount of subacromial subdeltoid bursal fluid. Acromioclavicular joint osteoarthrosis is noted with mass effect upon the subjacent supraspinatus. No focal concerning regional marrow or muscular signal abnormality apparent. IMPRESSION: 1. Signal alteration within the region of the superior labrum that could reflect superior labrum ant erior to posterior tear. 2. Acromioclavicular joint osteoarthrosis with mass effect upon the subjacent supraspinatus. POS: OFF
== END 2018-11-28 09:34 | disposition home or self-care (01) ==
LOC: SCSCT 09:33
PROVIDERS: ATTEND Orthopaedic Surgery
DX: S72.354 Nondisplaced comminuted fracture of shaft of right femur (principal); M25.511 Pain in right shoulder; M19.011 Primary osteoarthritis, right shoulder; M25.811 Other specified joint disorders, right shoulder

== ENCOUNTER 2019-01-05 05:43 | Outpatient (CLI) | payer OTHER ==
[2019-01-05 10:56] LABS: #Basophils 0.1 thou/uL (0.0-0.2); #Eosinphils 0.1 thou/uL (0.0-0.7); #Lymphocytes 1.8 thou/uL (1.20-3.40); #Monocytes 0.4 thou/uL (0.11-0.59); %Basophils 0.9 % (0.0-1.0); %Eosinophils 1.5 % (0.0-10.0); %Lymphocytes 28.5 % (21.0-51.0); %Monocytes 6.1 % (0.0-10.0); Mean Corpuscular HGB CONC 32.9 g/dL (32.0-36.0); Mean Corpuscular Hemoglobin 30.9 pg (27.0-31.0); Mean Corpuscular Volume 93.9 fL (78.0-98.0); Mean Platelet Volume 7.7 fL (7.4-10.4); Platelet Count 257 thou/uL (130-400); RBC Distribution Width 11.5 % (11.5-14.5); Red Blood Cell (RBC) Count 5.18 mill/uL (4.70-6.10); White Blood Cell (WBC) Count 6.3 thou/uL (4.8-10.8)
== END 2019-01-05 05:44 | disposition home or self-care (01) ==
LOC: LABBT 05:43
PROVIDERS: ATTEND Orthopaedic Surgery
DX: Z01.812 Encounter for preprocedural laboratory examination (principal); S42.301K Unspecified fracture of shaft of humerus, right arm, subsequent encounter for fracture with nonunion
CPT/HCPCS: 85025; 85652; 86140

== ENCOUNTER 2019-01-05 08:30 | Inpatient (IN) | payer OTHER ==
[2019-01-05 08:38] VITALS: BMI 25.0
[2019-01-08] MEDS ORDERED: Fentanyl 250 MCG/5 ML VIAL ONE (06:22)
[2019-01-08] MEDS ORDERED: HYDROmorphone 2 MG/ML VIAL ONE ×2 (07:23→11:44)
[2019-01-08] MEDS ORDERED: Glycopyrrolate 0.2 MG/ML 5 ML SYRINGE ONE (10:04)
[2019-01-08] MEDS ORDERED: Rocuronium Bromide 10 MG/ML (10ML VIAL) ONE (10:04)
[2019-01-08] MEDS ORDERED: Ondansetron PF 4 MG/2 ML Vial ONE (10:04)
[2019-01-08] MEDS ORDERED: PROPOFOL 200 MG/20 ML VIAL ONE (10:04)
[2019-01-08] MEDS ORDERED: Lidocaine 1% PF 5 ML VIAL ONE (10:04)
[2019-01-08] MEDS ORDERED: Ketorolac Tromethamine 30 MG/ML VIAL ONE (10:04)
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
--- NOTE | 2019-01-08 11:55 | RAD ---
Exam: Right humerus 2 views: Several portable fluoroscopic spot images done intraoperatively demonstrates replacement of the metal plate and screws stabilizing the mid shaft fracture with overall satisfactory alignment. HISTORY: Replacement of hardware. IMPRESSION: Metal plate and screws stabilizing the mid humeral shaft without significant malalignment.
--- NOTE | 2019-01-08 11:57 | RAD ---
Exam: XR Femur Rt 2 View STANDARD HISTORY: Hardware removal/replacement right femur. COMPARISON: None FINDINGS: Provided fluoroscopic images of the right femur demonstrate a retrograde intramedullary josh with dist al interlocking screw which transfixes a healed fracture of the distal right femoral diaphysis as well as a fracture involving the middle one third right femoral diaphysis with prominent callus forma tion about this fracture. The lucency of the fracture mid femoral diaphysis does persist.. A transversely oriented lucency is seen within the distal femur likely due to site of prior hardware. C orrelation with intraoperative findings is recommended. Fluoroscopy: Total fluoroscopy time is 87.7 seconds with total dose of 9.07 mGy IMPRESSION: Internal fixation of fractures right femur. Correlation with intraoperative findings is recommended.
[2019-01-08] MEDS ORDERED: Bacitracin Zinc Ointment 30 gm TUBE ONE (12:10)
[2019-01-08] MEDS ORDERED: traMADol HCl 50 MG TAB PO PRN (12:29)
[2019-01-08] MEDS ORDERED: HYDROcodone/Acetaminophen 10/325 mg Tablet PO PRN ×2 (12:29)
[2019-01-08] MEDS ORDERED: Ondansetron PF 4 MG/2 ML Vial IV PRN (12:29)
[2019-01-08] MEDS ORDERED: Fentanyl 100 MCG/2 ML VIAL SLOW IVP PRN (12:29)
[2019-01-08] MEDS ORDERED: TETANUS AND DIPHTHERIA TOX/PF 0.5 ML DISP.SYRIN IM SCH (12:30)
[2019-01-08] MEDS ORDERED: Communication Order-Pharmacy FS SCH (12:30)
[2019-01-08] MEDS ORDERED: Promethazine HCl 25 MG/ML VIAL IM PRN (12:46)
[2019-01-08] MEDS ORDERED: Promethazine HCl 25 MG/ML VIAL SLOW IVP PRN (12:46)
[2019-01-08] MEDS ORDERED: Ondansetron HCl/PF 4 MG/2 ML Vial IVP PRN (12:46)
[2019-01-08] MEDS ORDERED: HYDROmorphone 2 MG/ML VIAL SLOW IVP PRN (12:46)
[2019-01-08] MEDS ORDERED: HYDROmorphone 0.5 MG/0.5 ML SYRINGE ONE ×2 (12:57→13:32)
[2019-01-08] MEDS ORDERED: Promethazine HCl 25 MG/ML VIAL ONE (12:58)
[2019-01-08] MEDS: CEFAZOLIN 2 GM in Premix Bag 1 BAG IVPB SCH ×2 (15:26→21:09)
[2019-01-08] MEDS: Ketorolac Tromethamine 30 MG/ML VIAL IVP SCH (17:02)
[2019-01-08] MEDS: Aspirin 81 mg Enteric Coated Tablet PO SCH (21:07)
[2019-01-09] MEDS: Ketorolac Tromethamine 30 MG/ML VIAL IVP SCH ×4 (00:09→17:18)
[2019-01-09 05:29] LABS: #Eosinphils 0.1 thou/uL (0.0-0.7); #Lymphocytes 1.9 thou/uL (1.20-3.40); #Monocytes 1.8 thou/uL (0.11-0.59); #Neutrophils 9.8 thou/uL (1.40-6.50); %Basophils 0.3 % (0.0-1.0); %Eosinophils 0.5 % (0.0-10.0); %Lymphocytes 13.9 % (21.0-51.0); %Monocytes 13.5 % (0.0-10.0); %Neutrophils 71.8 % (42.0-75.0); Hemoglobin 12.2 g/dL (14.0-18.0); Mean Corpuscular HGB CONC 32.6 g/dL (32.0-36.0); Mean Corpuscular Hemoglobin 30.9 pg (27.0-31.0); Mean Corpuscular Volume 94.7 fL (78.0-98.0); Mean Platelet Volume 7.4 fL (7.4-10.4); Platelet Count 278 thou/uL (130-400); RBC Distribution Width 11.3 % (11.5-14.5); Red Blood Cell (RBC) Count 3.96 mill/uL (4.70-6.10); White Blood Cell (WBC) Count 13.7 thou/uL (4.8-10.8)
[2019-01-09] MEDS: CEFAZOLIN 2 GM in Premix Bag 1 BAG IVPB SCH ×3 (05:40→22:29)
[2019-01-09 05:58] LABS: ALT (SGPT) 18 U/L (8-55); AST (SGOT) 23 U/L (5-34); Albumin 3.9 g/dL (3.5-5.0); Alkaline Phosphatase 133 U/L (40-110); Anion Gap 13 mmol/L (10-20); BUN (Urea Nitrogen) 14 mg/dL (8.9-20.6); Bilirubin, Total 0.8 mg/dL (0.2-1.2); Calc. Creatinine Clearance 156 mL/min (70-130); Calcium 8.7 mg/dL (7.8-10.44); Carbon Dioxide 29 mmol/L (22-29); Chloride 101 mmol/L (98-107); Estimated GFR-MDRD Greater than 90; Globulin 2.1 g/dL (2.4-3.5); Glucose 127 mg/dL (70-105); Potassium 3.9 mmol/L (3.5-5.1); Sodium 139 mmol/L (136-145)
[2019-01-09] MEDS: traMADol HCl 50 MG TAB PO PRN ×2 (07:20→20:23)
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
[2019-01-09] MEDS: Aspirin 81 mg Enteric Coated Tablet PO SCH ×2 (08:28→20:23)
[2019-01-09] MEDS: Magnesium Oxide 400 MG TAB PO SCH (08:28)
[2019-01-10] MEDS: CEFAZOLIN 2 GM in Premix Bag 1 BAG IVPB SCH (05:18)
[2019-01-10] MEDS: Aspirin 81 mg Enteric Coated Tablet PO SCH (08:41)
[2019-01-10] MEDS: Magnesium Oxide 400 MG TAB PO SCH (08:42)
[2019-01-10 11:28] VITALS: BP 131/80; TEMP 97.8
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
== END 2019-01-10 13:39 | disposition home or self-care (01) | DRG 482 ==
LOC: SURG A 01-08 06:02 → EDSTATUS 01-08 08:30 → SURG A 01-08 14:58
PROVIDERS: ADMIT Orthopaedic Surgery; ATTEND Orthopaedic Surgery
PROC: 0QH806Z Insertion of Intramedullary Internal Fixation Device into Right Femoral Shaft, Open Approach (ICD-10-PCS; principal; 2019-01-08)
PROC: 0PPF04Z Removal of Internal Fixation Device from Right Humeral Shaft, Open Approach (ICD-10-PCS; 2019-01-08)
PROC: 0PSF04Z Reposition Right Humeral Shaft with Internal Fixation Device, Open Approach (ICD-10-PCS; 2019-01-08)
PROC: 0QP804Z Removal of Internal Fixation Device from Right Femoral Shaft, Open Approach (ICD-10-PCS; 2019-01-08)
PROC: 0QU807Z Supplement Right Femoral Shaft with Autologous Tissue Substitute, Open Approach (ICD-10-PCS; 2019-01-08)
PROC: 0PBF0ZZ Excision of Right Humeral Shaft, Open Approach (ICD-10-PCS; 2019-01-08)
PROC: 01Q60ZZ Repair Radial Nerve, Open Approach (ICD-10-PCS; 2019-01-08)
DX: S72.351K Displaced comminuted fracture of shaft of right femur, subsequent encounter for closed fracture with nonunion (principal); S42.301K Unspecified fracture of shaft of humerus, right arm, subsequent encounter for fracture with nonunion; Z96.652 Presence of left artificial knee joint; J45.909 Unspecified asthma, uncomplicated; F41.9 Anxiety disorder, unspecified; F32.9 Major depressive disorder, single episode, unspecified; Z79.1 Long term (current) use of non-steroidal anti-inflammatories (NSAID); V29.9XXD Motorcycle rider (driver) (passenger) injured in unspecified traffic accident, subsequent encounter; Z79.899 Other long term (current) drug therapy
CPT/HCPCS: 36415; 76000; 80053; 85025; 85652; 86140; C1713; C1769; J0131; J0690; J1170; J1885; J2001; J2405; J2550; J2704; J3010

== ENCOUNTER 2020-03-11 14:54 | Outpatient (CLI) | payer OTHER ==
--- NOTE | 2020-03-11 15:51 | MRI ---
EXAM: MRI right knee PROVIDED CLINICAL HISTORY: Pain COMPARISON: None FINDINGS: Evaluation is limited due to susceptibility artifact and inhomogeneous fat saturation related to dist al femoral hardware. The anterior cruciate ligament, posterior cruciate ligament, lateral collateral ligament and lateral collateral ligamentous complex demonstrate an intact MR appearance, as does the extensor mechanism. The medial and lateral menisci demonstrate no definite evidence for tear. No focal articular cartilage defect is apparent. The amount of fluid within the knee joint appears physiologic. IMPRESSION: No evidence for internal derangement.
== END 2020-03-11 14:55 | disposition home or self-care (01) ==
LOC: TBSIIMAG 14:54
PROVIDERS: ATTEND Orthopaedic Surgery
DX: S83.511A Sprain of anterior cruciate ligament of right knee, initial encounter (principal)